=== PATIENT | male | born 1955 | race Caucasian/White ===

== ENCOUNTER → 2023-11-28 | Outpatient (CLI) | payer MEDICARE, OTHER, SELFPAY ==
[2023-11-28 13:36] LABS: Thyroid Stim Hormone (TSH) 2.68 uIU/mL (0.358-3.74)
== END | disposition home or self-care (01) ==
LOC: LABSPEC 13:05
PROVIDERS: Referring Provider Registered Nurse; Visit Provider Registered Nurse
DX: R63.5 Abnormal weight gain (principal); M79.89 Other specified soft tissue disorders; R06.9 Unspecified abnormalities of breathing
CPT/HCPCS: 83880; 84443